=== PATIENT | male | born 1970 ===

== ENCOUNTER 2019-11-30 19:50 | Emergency (ER) | payer OTHER ==
[~2019-11-30] VITALS: Ht 175.3 cm; Wt 136.4 kg
--- NOTE | 2019-11-30 20:38 | PHYS DOC ---
Past Medical History Past Medical History: Other Additional Past Medical Histor: [facility] Past Surgical History: Appendectomy, Cholecystectomy, Other Additional Past Surgical Histo: Carpal tunnel Smoking Status: Never Smoker Alcohol Use: Occasionally General Adult EDM: Chief Complaint: KNEE INJURY HPI: HPI: Patient is a 49 year old male presents for evaluation of left knee pain. 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 Patient denies any other injuries. Pain with ROM left knee. No deformities. noted. Tender to palpation anterior distal femur. NVI. Review of Systems: Review of Systems: Constitutional: Denies fever or chills. [] Eyes: Denies change in visual acuity. [] HENT: Denies nasal congestion or sore throat. [] Respiratory: Denies cough or shortness of breath. [] Cardiovascular: Denies chest pain or edema. [] GI: Denies abdominal pain, nausea, vomiting, bloody stools or diarrhea. [] : Denies dysuria. [] Musculoskeletal: Denies back pain or joint pain. [] Integument: Denies rash. [] Neurologic: Denies headache, focal weakness or sensory changes. [] Endocrine: Denies polyuria or polydipsia. [] Lymphatic: Denies swollen glands. [] Psychiatric: Denies depression or anxiety. [] Heart Score: Risk Factors: Risk Factors: DM, Current or recent (<one month) smoker, HTN, HLP, family history of CAD, obesity. Risk Scores: Score 0 - 3: 2.5% MACE over next 6 weeks - Discharge Home Score 4 - 6: 20.3% MACE over next 6 weeks - Admit for Clinical Observation Score 7 - 10: 72.7% MACE over next 6 weeks - Early Invasive Strategies Allergies: Allergies: Allergies Coded Allergies Type Severity Reaction Last Updated Verified No Known Drug Allergies 11/30/19 No Physical Exam: PE: Constitutional: Well developed, well nourished, no acute distress, non-toxic appearance. [] HENT: Normocephalic, atraumatic, bilateral external ears normal, oropharynx moist, no oral exudates, nose normal. [] Eyes: PERRLA, EOMI, conjunctiva normal, no discharge. [] Neck: Normal range of motion, no tenderness, supple, no stridor. [] Cardiovascular:Heart rate regular rhythm, no murmur [] Lungs & Thorax: Bilateral breath sounds clear to auscultation [] Abdomen: Bowel sounds normal, soft, no tenderness, no masses, no pulsatile masses. [] Skin: Warm, dry, no erythema, no rash. [] Back: No tenderness, no CVA tenderness. [] Extremities: left knee pain pain with rom no deformities no effusion Neurologic: Alert and oriented X 3, normal motor function, normal sensory functi on, no focal deficits noted. [] Psychologic: Affect normal, judgement normal, mood normal. [] Current Patient Data: Vital Signs: Vital Signs Date Time Temp Pulse Resp B/P (MAP) Pulse Ox O2 Delivery O2 Flow Rate FiO2 11/30/19 20:10 96.9 111 18 129/70 (89) 93 Room Air 96.9 EKG: EKG: [] Radiology/Procedures: Radiology/Procedures: [] Impression: xray negative Course & Med Decision Making: Course & Med Decision Making Pertinent Labs and Imaging studies reviewed. (See chart for details) [] Dragon Disclaimer: Dragon Disclaimer: This electronic medical record was generated, in whole or in part, using a voice recognition dictation system. Departure Departure Impression: Primary Impression: Knee pain, left Disposition: HOME, SELF-CARE Condition: STABLE Patient Instructions: Knee Pain Justicifation of Admission Dx: Justifications for Admission: Justification of Admission Dx: N/A MARCIAL AGUILERA DO Nov 30, 2019 20:37
[2019-11-30 21:00] VITALS: BP 147/82
--- NOTE | 2019-11-30 21:30 | RAD ---
Left knee x-rays 3 views HISTORY: Left knee pain. FINDINGS: Mild osteoarthritic change medial compartment with joint space narrowing and mild bone spurs. No fracture. No dislocation. Soft tissues unremarkable. IMPRESSION: No acute osseous injury. Electronically signed by: Carlos Alberto Link MD (11/30/2019 9:27 PM) [facility]
== END 2019-11-30 21:05 | disposition home or self-care (01) ==
LOC: ER 19:50
DX: M25.562 Pain in left knee (principal); Z90.89 Acquired absence of other organs; Z90.49 Acquired absence of other specified parts of digestive tract
CPT/HCPCS: 29505; 73562; 99283